=== PATIENT | male | born 1990 | race Two or more races ===

== ENCOUNTER 2022-09-12 12:26 | Emergency (ER) | payer OTHER ==
[~2022-09-12] VITALS: Ht 190.5 cm; Wt 90.7 kg
[~2022-09-12 12:26] MED LIST: HYDR-4384 PO
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
--- NOTE | 2022-09-12 13:05 | NUR ---
X-RAY TECH. AT BEDSIDE
[2022-09-12 15:19] VITALS: BP 118/74
--- NOTE | 2022-09-12 15:19 | NUR ---
Patient discharged to home in stable condition. Written and verbal after care instructions given. Patient verbalizes understanding of instruction.
== END 2022-09-12 15:20 | disposition home or self-care (01) ==
LOC: ER 12:31
DX: S50.12XA Contusion of left forearm, initial encounter (principal); S80.02XA Contusion of left knee, initial encounter; Z79.899 Other long term (current) drug therapy; W22.8XXA Striking against or struck by other objects, initial encounter; Y93.89 Activity, other specified; Y92.89 Other specified places as the place of occurrence of the external cause; Y99.8 Other external cause status
CPT/HCPCS: 73090-TC; 73110; 73564-TC